=== PATIENT | male | born 1975 | race Caucasian/White ===

== ENCOUNTER 2017-01-03 10:07 | Emergency (ER) | payer OTHER ==
--- NOTE | 2017-01-03 10:41 | ED CLINICAL REPORT ---
Clinical Report - Physicians/Mid Levels Formerly [facility] [address] [place] [address] 01/03/2017 10:09 Patient: DARIEN THAPA Arrived- By private vehicle. Historian- patient. HISTORY OF PRESENT ILLNESS Chief Complaint: COUGH. This started past 2 - 3 days and is still present (staying the same). It was abrupt in onset and has been constant but is not gone now. The illness is described as moderate. The patient has had a cough, nasal congestion and a subjective low grade fever. He has had moderate amounts of green sputum. (reports "chest congestion" only when coughing.). ( reports malaise about 5 days ago). Similar symptoms previously: None. Recent medical care: Not recently seen/assessed. REVIEW OF SYSTEMS No nausea, vomiting or skin rash. All systems otherwise negative, except as recorded above. PAST HISTORY See nurses notes. Medications: Tylenol Oral, as needed. Mucinex Oral, as needed. Allergies: No Known Drug Allergy. SOCIAL HISTORY Never smoker. Occasional alcohol use. No drug use. Is a local resident. ADDITIONAL NOTES The nursing notes have been reviewed. PHYSICAL EXAM Vital Signs: 01/03/2017 10:20 BP: 140/88. HR: 86. RR: 16. O2 saturation: 97%. Temp: 99.4 F. Pain level now: 1/10. Blood pressure normal. Oxygen saturation normal. Appearance: Alert. No acute distress. Eyes: Pupils equal, round and reactive to light. Eyes normal inspection. ENT: Ears normal. Nose normal. Pharynx normal. Uvula midline. Neck: Normal inspection. Neck supple. No meningeal signs. CVS: Normal heart rate and rhythm. Heart sounds normal. Pulses normal. Respiratory: No respiratory distress. Breath sounds normal. No rales, rhonchi, wheezes or stridor. Abdomen: Soft and nontender. No organomegaly. Skin: Skin warm and dry. Normal skin color. No rash. Normal skin turgor. Extremities: Extremities exhibit normal ROM. No clubbing present or lower extremity edema. No calf tenderness. (normal gait). PROGRESS AND PROCEDURES Course of Care: The patient is a pleasant 41-year-old male with no pertinent past medical history of bleeding for evaluation of symptoms that are appear to be upper respiratory tract in nature. Lung examination is clear. Patient is afebrile here in the emergency department. Blood pressures normal. Heart rate is unremarkable. Do not feel patient needs imaging of the chest in regards to her symptoms. Chest pain is noted to be pleuritic and only occurs when he is coughing. Because patient's lung examination is clear and the patient does not have indications for antibiotics, had discussion with patient in regards to treatment with antibiotics. Do not feel these are warranted at this time. Patient appears nontoxic. Patient is in no acute distress. At this time conservative management with symptomatically controlled with medications will be recommended. Do not feel patient has pneumonia. Do not the patient is admitted to the hospital. Do not feel further emergency department workup/evaluation is warranted. Discussed the patient workup, diagnosis, home care, follow-up, return precautions. All questions answered. The patient expressed understanding of these instructions and was agreeable to them. Disposition: Discharged. Condition: good. CLINICAL IMPRESSION Acute viral bronchitis. INSTRUCTIONS Warnings: GENERAL WARNINGS: Return or contact your physician immediately if your condition worsens or changes unexpectedly, if not improving as expected, or if other problems arise. Specifically return if pain, vomiting, bleeding, breathing difficulty or fever. Your Current Medications: CONTINUE TAKING THE FOLLOWING MEDICATIONS: Mucinex Oral : prn. Tylenol Oral : prn. Prescription Medications: Phenergan w/ Codeine 10mg / 6.25mg per 5 mL: take 1-2 teaspoons every 6 hours as needed for pain or cough. Dispense sixty (60) mL. No refill. Substitution is permissible. Follow-up: Return to the emergency department as needed. Follow up with your doctor in three days. Reason for referral: reheck today's concerns. Summary of care provided to patient via paper. Screening today revealed the patient's blood pressure to be in the normal range. The patient should follow up with a primary care provider for blood pressure management. Understanding of the discharge instructions verbalized by patient. (Electronically signed by Jared Thakkar Dr. 01/03/2017 15:30)
--- NOTE | 2017-01-03 10:41 | ED NURSING NOTES ---
Clinical Report - Nurses [facility] [address] [place] [address] 01/03/2017 10:09 Patient: DARIEN THAPA TRIAGE Triage time 10:20 Jan 03 2017. Acuity: LEVEL 3. Chief Complaint: COUGH and BODY ACHES and possible FLU EXPOSURE. Alert. DERIAN COMA SCORE: [place] Coma Scale: 15- eyes open spontaneously (4); best verbal response- oriented x 4 (5); best motor response- obeys commands (6). --10:29 Sherman Prater R.N. 10:20 01/03/17. BP: 140/88. HR: 86. RR: 16. O2 saturation: 97% on room air. Temp: 99.4 F (oral). Pain level now: 12/01. Additional comments: Chest Tightness. --10:29 Sherman Prater R.N. Weight: 113.3 kg. Height/Length: 73 inches. BMI: 33. --10:21 Sherman Prater R.N. Medications Mucinex Oral, as needed. --10:25 Sherman Prater R.N. Tylenol Oral, as needed. --10:25 Sherman Prater R.N. Allergies No Known Drug Allergy. --10:26 Sherman Prater R.N. History Arrived by private vehicle. Historian: patient. Accompanied by family. Primary physician (Radha Rich). ( Cough with a productive cough (especially at night time) and chills.). Onset. (about 4 - 5 days ago). 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 (Last dose ~ 4 hours ago). PAST MEDICAL HX: Pneumonia. SOCIAL HX: Former smoker, end date 2006. No alcohol use or drug use. No recent travel. No infectious disease exposure. ABUSE ASSESSMENT: No report of abuse. FALL RISK ASSESSMENT: Fall risk assessment completed. No fall risk identified. NUTRITIONAL RISK ASSESSMENT: The nutritional risk assessment revealed no deficiencies. FUNCTIONAL ASSESSMENT: Functional assessment: no impairments noted. LEARNING NEEDS ASSESSMENT: The learning needs assessment revealed no barriers. SKIN INTEGRITY ASSESSMENT: Skin integrity risk assessment completed. No skin integrity risk identified. --10:29 Sherman Prater R.N. The patient has had chills, fatigue and vomiting. --10:30 Sherman Prater R.N. ADDITIONAL SURGERIES: Septo. --10:28 Sherman Prater R.N. Interventions ID band on patient. To treatment room. --10:29 Sherman Prater R.N. PHYSICAL ASSESSMENT Ambulatory to room. GENERAL / NEURO / PSYCH: Alert. Oriented X 4. HEENT: Mucous membranes are pink. RESPIRATORY: Respirations not labored. Breath sounds within normal limits. CVS: Pulses within normal limits. GI / : Abdomen soft and nontender. SKIN: Skin is warm and dry. Normal skin turgor. --10:31 Sherman Prater R.N. NURSING PROGRESS NOTES Patient gowned. Reassurance given to the patient. Patient identifiers checked. Call light placed in reach. Side rails up. Bed placed in lowest position. Brakes of bed on. Patient ready for evaluation- chart flagged and ED physician notified. --10:31 Sherman Prater R.N. 10:35 01/03/2017 Motrin PO Tablets 600 mg given. Allergies verified and confirmed 5 rights. --10:46 Sherman Prater R.N. DISPOSITION / DISCHARGE Departure time: 1040. --18:55 Sherman Prater R.N. 10:40. Condition at departure: improved. No learning barriers present. Discharge instructions provided and reviewed with the patient. Reviewed medication(s) (prescription given to pt). Reviewed referral to family practice for followup. Patient verbalized understanding. Written instructions provided in Divehi. The patient was discharged by the physician. He was discharged home and accompanied by certified master safecracker. He left the Emergency Department ambulatory and via private vehicle. Bdc Manager driving. --18:59 Sherman Prater R.N. Locked/Released at 01/03/2017 18:59 by Sherman Prater R.N.
--- NOTE | 2017-01-03 10:41 | ED ORDER SUMMARY ---
..... Patient: DARIEN THAPA OrderSheet [facility] VisitID: [id number] [address] [place] [address] 41y, M Registration Date/Time: 01/03/2017 ORDER SHEET Weight: 113.3 kg Allergies: No Known Drug Allergy GENERAL ORDERS: MEDICATION ORDERS: Motrin PO 600 mg (NOW) (10:36 01/03/2017 Ishmael Santamaria) (10:46 López Pearl) IV FLUIDS: ORDER SHEET NOTES: [Electronically signed by Jared Thakkar Dr. (15:30 01/03/2017)] [Electronically signed by Sherman Prater R.N. (18:59 01/03/2017)] [Electronically locked/signed by Sherman Prater R.N. (18:59 01/03/2017)]
--- NOTE | 2017-01-03 10:41 | ED NURSING NOTES ---
Clinical Report - Nurses [facility] [address] [place] [address] 01/03/2017 10:09 Patient: DARIEN THAPA TRIAGE Triage time 10:20 Jan 03 2017. Acuity: LEVEL 3. Chief Complaint: COUGH and BODY ACHES and possible FLU EXPOSURE. Alert. DERIAN COMA SCORE: [place] Coma Scale: 15- eyes open spontaneously (4); best verbal response- oriented x 4 (5); best motor response- obeys commands (6). --10:29 Sherman Prater R.N. 10:20 01/03/17. BP: 140/88. HR: 86. RR: 16. O2 saturation: 97% on room air. Temp: 99.4 F (oral). Pain level now: 12/01. Additional comments: Chest Tightness. --10:29 Sherman Prater R.N. Weight: 113.3 kg. Height/Length: 73 inches. BMI: 33. --10:21 Sherman Prater R.N. Medications Mucinex Oral, as needed. --10:25 Sherman Prater R.N. Tylenol Oral, as needed. --10:25 Sherman Prater R.N. Allergies No Known Drug Allergy. --10:26 Sherman Prater R.N. History Arrived by private vehicle. Historian: patient. Accompanied by family. Primary physician (Radha Rich). ( Cough with a productive cough (especially at night time) and chills.). Onset. (about 4 - 5 days ago). 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 (Last dose ~ 4 hours ago). PAST MEDICAL HX: Pneumonia. SOCIAL HX: Former smoker, end date 2006. No alcohol use or drug use. No recent travel. No infectious disease exposure. ABUSE ASSESSMENT: No report of abuse. FALL RISK ASSESSMENT: Fall risk assessment completed. No fall risk identified. NUTRITIONAL RISK ASSESSMENT: The nutritional risk assessment revealed no deficiencies. FUNCTIONAL ASSESSMENT: Functional assessment: no impairments noted. LEARNING NEEDS ASSESSMENT: The learning needs assessment revealed no barriers. SKIN INTEGRITY ASSESSMENT: Skin integrity risk assessment completed. No skin integrity risk identified. --10:29 Sherman Prater R.N. The patient has had chills, fatigue and vomiting. --10:30 Sherman Prater R.N. ADDITIONAL SURGERIES: Septo. --10:28 Sherman Prater R.N. Interventions ID band on patient. To treatment room. --10:29 Sherman Prater R.N. PHYSICAL ASSESSMENT Ambulatory to room. GENERAL / NEURO / PSYCH: Alert. Oriented X 4. HEENT: Mucous membranes are pink. RESPIRATORY: Respirations not labored. Breath sounds within normal limits. CVS: Pulses within normal limits. GI / : Abdomen soft and nontender. SKIN: Skin is warm and dry. Normal skin turgor. --10:31 Sherman Prater R.N. NURSING PROGRESS NOTES Patient gowned. Reassurance given to the patient. Patient identifiers checked. Call light placed in reach. Side rails up. Bed placed in lowest position. Brakes of bed on. Patient ready for evaluation- chart flagged and ED physician notified. --10:31 Sherman Prater R.N. 10:35 01/03/2017 Motrin PO Tablets 600 mg given. Allergies verified and confirmed 5 rights. --10:46 Sherman Prater R.N. DISPOSITION / DISCHARGE Departure time: 1040. --18:55 Sherman Prater R.N. 10:40. Condition at departure: improved. No learning barriers present. Discharge instructions provided and reviewed with the patient. Reviewed medication(s) (prescription given to pt). Reviewed referral to family practice for followup. Patient verbalized understanding. Written instructions provided in French. The patient was discharged by the physician. He was discharged home and accompanied by rn transport. He left the Emergency Department ambulatory and via private vehicle. Work Counselor driving. --18:59 Sherman Prater R.N. Locked/Released at 01/03/2017 18:59 by Sherman Prater R.N.
--- NOTE | 2017-01-03 10:41 | ED ORDER SUMMARY ---
..... Patient: DARIEN THAPA OrderSheet [facility] VisitID: [id number] [address] [place] [address] 41y, M Registration Date/Time: 01/03/2017 ORDER SHEET Weight: 113.3 kg Allergies: No Known Drug Allergy GENERAL ORDERS: MEDICATION ORDERS: Motrin PO 600 mg (NOW) (10:36 01/03/2017 Ishmael Santamaria) (10:46 López Pearl) IV FLUIDS: ORDER SHEET NOTES: [Electronically signed by Jared Thakkar Dr. (15:30 01/03/2017)] [Electronically signed by Sherman Prater R.N. (18:59 01/03/2017)] [Electronically locked/signed by Sherman Prater R.N. (18:59 01/03/2017)]
--- NOTE | 2017-01-03 19:00 | ED MAR SUMMARY ---
..... Medication Administration Record Located Within [facility] [address] [place] [address] Patient: DARIEN THAPA Visit ID: [id number] 41y, M Weight: 113.3 kg Height/Length: 73 in BMI: 33 ALLERGIES: No Known Drug Allergy Given 10:35 01/03/2017 Sherman Prater R.N. Medication Administered: MOTRIN [PO], Dose: 600 mg Tablets PO. Medication Ordered: Motrin PO 600 mg (NOW).
--- NOTE | 2017-01-03 19:00 | ED MED RECONCILIATION SUMMARY ---
Patient: DARIEN THAPA Medication Reconciliation Report [facility] VisitID: [id number] [address] [place] [address] 41y, M Registration Date/Time: 01/03/2017 Weight: 113.3 kg Height/Length: 73 in. BMI: 33.0 ALLERGIES: No Known Drug Allergy The patient's Home Medications are listed below: CONTINUE TAKING THE FOLLOWING MEDICATIONS: Mucinex Oral Tylenol Oral The source(s) of the original Home Medication information: Not obtained. The following Medications were given to the patient in the Emergency Department: Motrin [PO] PO 600 mg, administered: 01/03/2017 10:35:00 AM The following Medications were prescribed to the patient: Phenergan w/ Codeine 10mg / 6.25mg per 5 mL: take 1-2 teaspoons every 6 hours as needed for pain or cough. Dispense sixty (60) mL. No refill. Substitution is permissible. -- Jared Thakkar Dr.
--- NOTE | 2017-01-03 19:00 | ED MAR SUMMARY ---
..... Medication Administration Record [facility] [address] [place] [address] Patient: DARIEN THAPA Visit ID: [id number] 41y, M Weight: 113.3 kg Height/Length: 73 in BMI: 33 ALLERGIES: No Known Drug Allergy Given 10:35 01/03/2017 Sherman Prater R.N. Medication Administered: MOTRIN [PO], Dose: 600 mg Tablets PO. Medication Ordered: Motrin PO 600 mg (NOW).
--- NOTE | 2017-01-03 19:00 | ED MED RECONCILIATION SUMMARY ---
Patient: DARIEN THAPA Medication Reconciliation Report [facility] VisitID: [id number] [address] [place] [address] 41y, M Registration Date/Time: 01/03/2017 Weight: 113.3 kg Height/Length: 73 in. BMI: 33.0 ALLERGIES: No Known Drug Allergy The patient's Home Medications are listed below: CONTINUE TAKING THE FOLLOWING MEDICATIONS: Mucinex Oral Tylenol Oral The source(s) of the original Home Medication information: Not obtained. The following Medications were given to the patient in the Emergency Department: Motrin [PO] PO 600 mg, administered: 01/03/2017 10:35:00 AM The following Medications were prescribed to the patient: Phenergan w/ Codeine 10mg / 6.25mg per 5 mL: take 1-2 teaspoons every 6 hours as needed for pain or cough. Dispense sixty (60) mL. No refill. Substitution is permissible. -- Jared Thakkar Dr.
--- NOTE | 2017-01-03 19:00 | ED DISCHARGE INSTRUCTIONS ---
Patient: DARIEN THAPA General Instructions [facility] VisitID: [id number] [place] [address] 41y, M Registration Date/Time: 01/03/2017 Acute viral bronchitis. INSTRUCTIONS Warnings: GENERAL WARNINGS: Return or contact your physician immediately if your condition worsens or changes unexpectedly, if not improving as expected, or if other problems arise. Specifically return if pain, vomiting, bleeding, breathing difficulty or fever. Your Current Medications: CONTINUE TAKING THE FOLLOWING MEDICATIONS: Mucinex Oral : prn. Tylenol Oral : prn. Prescription Medications: Phenergan w/ Codeine 10mg / 6.25mg per 5 mL: take 1-2 teaspoons every 6 hours as needed for pain or cough. Dispense sixty (60) mL. No refill. Substitution is permissible. Follow-up: Return to the emergency department as needed. Follow up with your doctor in three days. Reason for referral: reheck today's concerns. Summary of care provided to patient via paper. Screening today revealed the patient's blood pressure to be in the normal range. The patient should follow up with a primary care provider for blood pressure management. Understanding of the discharge instructions verbalized by patient. ADDITIONAL INFORMATION Bronchitis, Viral (Adult: No Abx) You have a viral bronchitis. This illness is contagious during the first few days and is spread through the air by coughing and sneezing, or by direct contact (touching the sick person and then touching your own eyes, nose, or mouth). Most viral illnesses resolve within 10-14 days with rest and simple home remedies, although they may sometimes last for several weeks. Antibiotics will not kill a virus and are generally not prescribed for this condition. Home Care: If symptoms are severe, rest at home for the first 2-3 days. When resuming activity, don't let yourself become overly tired. Do not smoke and avoid the smoke of others. You may use acetaminophen (Tylenol) or ibuprofen (Motrin, Advil) to control fever or pain, unless another pain medicine was prescribed. [NOTE: If you have chronic liver or kidney disease or ever had a stomach ulcer or GI bleeding, talk with your doctor before using these medicines.] (Aspirin should never be used in anyone under 18 years of age who is ill with a fever. It may cause severe liver damage.) Your appetite may be poor so a light diet is fine. Avoid dehydration by drinking 6-8 glasses of fluids per day (water, sport drinks such as Gatorade, juices, tea, soup, etc.). Extra fluids will help loosen secretions in the nose and lung. [id number] cold medicines will not shorten the length of the illness, but may be helpful for cough (Robitussin DM), sore throat (Chloraseptic lozenges or spray), nasal and sinus congestion (Actifed or Sudafed). [NOTE: Do not use decongestants if you have high blood pressure.] Follow Up with your doctor or as directed by our staff if you are not improving over the next week. NOTE: If you are age 65 or older, or if you have chronic asthma or COPD, we recommend a PNEUMOCOCCAL VACCINATION every five years and a yearly INFLUENZAVACCINATION (FLU-SHOT) every . Ask your doctor about this. If you had an X-ray, a radiologist will review it. You will be notified of any new findings that may affect your care.] Get Prompt Medical Attention if any of the following occur: Fever over 100.4F (38.0C) for more than three days Trouble breathing, wheezing or pain with breathing Coughing up blood or increased amounts of colored sputum Weakness, drowsiness, headache, facial pain, ear pain or a stiff neck You have been given the following additional information: Bronchitis, No Antibiotic (Adult) (Electronically signed by Jared Thakkar Dr. 01/03/2017 15:30)
== END 2017-01-03 10:40 | disposition home or self-care (01) ==
LOC: ED SRH 10:07 → EDSEX 10:10 → ED SRH 10:40
DX: J20.8 Acute bronchitis due to other specified organisms (principal)

== ENCOUNTER 2017-02-07 06:22 | Emergency (ER) | payer OTHER ==
--- NOTE | 2017-02-07 10:34 | DIAGNOSTIC IMAGING REPORT ---
PROCEDURE: XR TIBIA AND FIBULA - RIGHT INDICATION: PAIN TECHNIQUE: AP and lateral views. COMPARISON: None. FINDINGS: There is a small punctate metal density in the deep soft tissues of the right mid leg. Osseous structures are normal. IMPRESSION: 1. Small punctate metal foreign body in the soft tissues of the mid right leg (may be acute or old). 2. Otherwise negative right tibia and fibula. 3. Findings called to Dr. Jared Thakkar and subsequently called to Dr. Braulio Cruz (voice mail).
--- NOTE | 2017-02-07 10:40 | DIAGNOSTIC IMAGING REPORT ---
PROCEDURE: US VENOUS - RIGHT EXT INDICATION: SWELLING TECHNIQUE: Color Doppler duplex imaging of the deep and superficial venous system without and with compression. COMPARISON: Radiographs of the right tibia and fibula earlier today (02/07/2017). FINDINGS: Deep and superficial venous system of the right lower extremity is within normal limits. There is no evidence of deep vein thrombosis or superficial thrombophlebitis. There are moderately prominent right inguinal lymph nodes (largest 4.8 cm). IMPRESSION: 1. Negative venous ultrasound of the right lower extremity. No evidence of deep vein thrombosis or superficial thrombophlebitis. 2. Moderate right inguinal adenopathy consistent with inflammatory process (e.g., cellulitis).
--- NOTE | 2017-02-11 00:36 | ED ORDER SUMMARY ---
..... Patient: DARIEN THAPA OrderSheet [facility] VisitID: [id number] [place] [address] 41y, M Registration Date/Time: 02/07/2017 ORDER SHEET Weight: 120.2 kg (stated) Allergies: No Known Drug Allergy GENERAL ORDERS: Blood Culture (No) (N/A) Urgent (06:59 02/07/2017 Jorge Luis AGUILAR) (Ack 7:03 Devan) (7:18 LWhalen R.N.) US Venous Right Urgent (07:00 02/07/2017 Jorge Luis AGUILAR) (Ack 7:03 Devan) (9:05 Eugenia) CBC w Diff Urgent (07:00 02/07/2017 Jorge Luis AGUILAR) (Ack 7:03 Devan) (7:18 LWhalen R.N.) CMP Urgent (07:00 02/07/2017 Jorge Luis AGUILAR) (Ack 7:03 Devan) (7:18 LWhalen R.N.) Lactate, Serum Urgent (07:00 02/07/2017 Jorge Luis AGUILAR) (Ack 7:03 Devan) (7:19 LWhalen R.N.) PCT (Procalcitonin) Urgent (07:00 02/07/2017 Jorge Luis AGUILAR) (Ack 7:03 Devan) (7:19 LWhalen R.N.) Tibia/Fibula Right Urgent (07:00 02/07/2017 Jorge Luis AGUILAR) (Ack 7:04 Devan) (7:35 Eugenia) MEDICATION ORDERS: IV FLUIDS: IV NS : initial bolus none -, then 150 mL/hr for 4h (NOW); Routine (06:59 02/07/2017 Jorge Luis AGUILAR) (7:19 LWhalen R.N.) Vancomycin IV 25 mg/kg (NOW) (07:00 02/07/2017 Jorge Luis AGUILAR) (8:04 LWhalen R.N.) ORDER SHEET NOTES: [Electronically signed by Breezy Pendleton R.N. (18:32 02/07/2017)] [Electronically signed by Braulio Cruz MD (00:36 02/11/2017)] [Electronically locked/signed by Breezy Pendleton R.N. (18:32 02/07/2017)]
--- NOTE | 2017-02-11 00:36 | ED MAR SUMMARY ---
..... Medication Administration Record [facility] [address] [place] [place] [address] Patient: DARIEN THAPA Visit ID: [id number] 41y, M Weight: 120.2 kg Height/Length: 73 in BMI: 35 ALLERGIES: No Known Drug Allergy Start 07:19 02/07/2017 Breezy Pendleton R.N., Stop 10:36 02/07/2017 Breezy Pendleton R.N. Medication Administered: IV NS (SALINE), Dose: IV Fluids over 4 hour(s), Rate: 150 mL/hr, Site: #1 right AC. Medication Ordered: IV NS : initial bolus none -, then 150 mL/hr for 4h (NOW); Routine. Start 07:54 02/07/2017 Breezy Pendleton R.N., Stop 09:02/07/2017 Breezy Pendleton R.N. Medication Administered: VANCOMYCIN [IVPB], Dose: 1 gm IVPB over 1 hour(s), Rate: 200 mL/hr, Dispensed: 200 mL bag, Site: #1 right AC. Medication Ordered: Vancomycin IV 25 mg/kg (NOW). Start 09:02/07/2017 Breezy Pendleton R.N., Stop 10:36 02/07/2017 Breezy Pendleton R.N. Medication Administered: VANCOMYCIN [IVPB], Dose: 1 gm IVPB over 1 hour(s), Rate: 200 mL/hr, Dispensed: 200 mL bag, Site: #1 right AC. Medication Ordered: Vancomycin IV 25 mg/kg (NOW).
--- NOTE | 2017-02-11 00:36 | ED DISCHARGE INSTRUCTIONS ---
Patient: DARIEN THAPA General Instructions [facility] VisitID: [id number] [place] [address] 41y, M Registration Date/Time: 02/07/2017 Cellulitis of the right lower leg. Acute fever INSTRUCTIONS Elevate affected areas above chest level for two days until better. Take Tylenol (Acetaminophen) or Motrin (Ibuprofen) as needed for fever control. Take medication according to label instructions. Apply dry heat for 15-20 minutes three times a day for three days until better. Do not work for two days until better. Warnings: Further evaluation is necessary. GENERAL WARNINGS: Return or contact your physician immediately if your condition worsens or changes unexpectedly, if not improving as expected, or if other problems arise. Prescription Medications: Hydrocodone/APAP 5mg/325mg: take 1 to 2 orally every 6 hours as needed for pain. Dispense fifteen (15). No refills. Cephalexin 500mg: take 1 tab orally every 6 hours for 7 days. No refills Trimethoprim-Sulfamethoxazole DS: take 1 tablet orally every 12 hours for 7 days. Dispense fourteen (14). No refills. Follow-up: Follow up with your doctor in two days. Call for an appointment. Understanding of the discharge instructions verbalized by patient. ADDITIONAL INFORMATION Cellulitis You have an infection of the skin known as cellulitis. This usually starts with a scrape, cut, insect bite, blister or other opening in the skin which becomes infected. This is a serious condition. It must be watched closely to be sure the infection is not spreading. With antibiotic treatment, the size of the red area will gradually shrink in size until the skin returns to normal. This will take 7-10 days. The red area should never increase in size once the antibiotic medicine has been started. Occasionally, an infection will be resistant to one antibiotic and another one will have to be used. Home Care: 1) Limit the use of the affected part, since excess movement can cause the infection to spread. 2) If the infection is on your leg, walk as little as possible during the first few days of the treatment. Keep your leg elevated while sitting. This will reduce swelling. 3) Take all of the antibiotic medicine exactly as directed until it is gone. Be careful not to miss any doses, especially during the first seven days. Follow Up with your doctor or this facility as directed. Check the infected area daily for the warning signs listed below. Get Prompt Medical Attention if any of the following occur: -- Spreading area of redness -- Increasing swelling or pain -- Appearance of pus or drainage -- Fever over 100.4 F (38.0 C) oral, or over 101.4 F (38.6 C) rectal, after two days on antibiotics Febrile Illness, Uncertain Cause (Adult) You have a fever, but the cause is not certain. A fever is a natural reaction of the body to an illness such as infections due to a virus or bacteria. In most cases, the temperature itself is not harmful. It actually helps the body fight infections. A fever does not need to be treated unless you feel very uncomfortable. Sometimes a fever can be an early sign of a more serious infection. Therefore, you should watch for the signs listed below. Home Care: If signs and symptoms are severe, rest at home for the first 2-3 days. When you resume activity, don't let yourself get too tired. Stay away from cigarette smoke (yours and other peoples). You may use acetaminophen (Tylenol) or ibuprofen (Motrin, Advil) to control fever or pain, unless another medicine was prescribed. NOTE: If you have chronic liver or kidney disease or ever had a stomach ulcer or GI bleeding, talk with your doctor before using these medicines. (Aspirin should never be used in anyone under 18 years of age who is ill with a fever. It may cause severe liver damage.) Your appetite may be poor, so a light diet is fine. Avoid dehydration by drinking 6-8 glasses of fluid per day (water, sport drinks such as Gatorade, sodas without caffeine, juices, tea, soup). Extra fluid will help loosen secretions in the nose and lungs. [id number] products will not shorten the duration of the illness but may be helpful for the following symptoms: cough (Robitussin DM); sore throat (Chloraseptic lozenges or spray); nasal and sinus congestion (Actifed or Sudafed). NOTE: Do not use decongestants if you have high blood pressure. Follow Up with your doctor or as advised if you do not start to improve over the next week. Get Prompt Medical Attention if any of the following occur: Cough with lots of colored sputum (mucus) or blood in your sputum Chest pain, shortness of breath, wheezing or difficulty breathing Severe headache, face, neck, throat or ear pain Feeling drowsy or confused Abdominal pain, repeated vomiting or diarrhea Joint pain or a new rash Burning when urinating Fever of 100.4F (38C) oral or higher, not better with fever medication Feeling weak or dizzy Convulsion You have been given the following additional information: Cellulitis Febrile Illness, Uncertain Cause (Adult) Do not work for two days until better. (Electronically signed by Braulio Cruz MD 02/11/2017 0:36)
--- NOTE | 2017-02-11 00:36 | ED CLINICAL REPORT ---
Clinical Report - Physicians/Mid Levels [facility] [address] [place] [address] 02/07/2017 6:22 Patient: DARIEN THAPA Time Seen: 06:58 Feb 07 2017. Arrived- By private vehicle. Historian- patient. CPT: ER phys charges level 4 (#[id number]). HISTORY OF PRESENT ILLNESS Chief Complaint: LOWER EXTREMITY PAIN and SWELLING and ; ;(RLE rash). This started yesterday and is still present. Severity is described as being moderate. The quality is noted to be sharp, aching and "pain". Symptoms located in the area of the right leg. The patient has had redness and swelling. No difficulty walking. Patient denies an injury. Similar symptoms previously: None. Recent medical care: Not recently seen/assessed. REVIEW OF SYSTEMS No cough, chest pain, difficulty breathing, enlarged lymph nodes or neck pain. No back pain, headache, blurred vision, abdominal pain or vomiting. No diarrhea. He has had fever and skin rash. All systems otherwise negative, except as recorded above. PAST HISTORY ( Bronchitis. Pneumonia. ADDITIONAL SURGERIES: Septo.). Medications: None. Allergies: No Known Drug Allergy. SOCIAL HISTORY Never smoker. Occasional alcohol use. No drug use. ADDITIONAL NOTES The nursing notes have been reviewed. PHYSICAL EXAM Vital Signs: 02/07/2017 06:49 BP: 126/78. HR: 106. RR: 20. O2 saturation: 94%. Temp: 101.4 F. Pain level now: 4/10. Appearance: Alert. No acute distress. Eyes: Pupils equal, round and reactive to light. ENT: Pharynx normal. Neck: Normal inspection. CVS: Tachycardia. Heart sounds normal. Respiratory: No respiratory distress. Breath sounds normal. Abdomen: Soft and nontender. Back: Normal inspection. No tenderness. Skin: Skin intact. Skin warm. Skin rash. Extremities: Right leg: moderate erythema and tenderness. (cellulitis). Extremities otherwise negative. Neuro: Oriented X 3. No motor deficit. No sensory deficit. LABS, X-RAYS, AND EKG Rt Tib/Fib X-ray: No bony lesion or air in the soft tissue. Soft tissues normal. Views: AP and lateral. Technique: good. The X-rays were independently viewed by me and interpreted contemporaneously by me. Lower Extremity Sonography: Negative study. Laboratory Tests: CBC w Diff: (ABIMAEL: 02/07/2017 07:10) ( [facility] 02/07/2017 07:27) Final results Test Result Flag Units (Reference) WHITE BLOOD COUNT 13.0 H K/uL (4.5-11.5) RED BLOOD COUNT 4.90 M/uL (4.50-5.90) HEMOGLOBIN 14.4 gm/dL (13.5-17.5) HEMATOCRIT 42.6 % (41.0-53.0) MEAN CELL VOLUME 87 fL (80-100) MEAN CORPUSCULAR HGB 29 pg (26-34) MEAN CORPUSCULAR HGB CONC 34 g/dL (31-37) RED CELL DISTRIBUTION WIDTH 12.9 % (11.6-14.8) PLATELET COUNT 270 K/uL (150-400) NEUTROPHIL % 72.8 % (50-75) LYMPH % 16.1 L % (25-40) MONO % 10.8 % (3-14) EOSINOPHIL % 0.1 % (0-4) BASOPHIL % 0.2 % (0-2) Lactate, Serum: (ABIMAEL: 02/07/2017 07:10) ( [facility] 02/07/2017 07:55) Final results Test Result Flag Units (Reference) LACTIC ACID 1.3 mmol/L (0.4-2.0) [id number]: (ABIMAEL: 02/07/2017 07:10) ( [facility] 02/07/2017 07:59) Final results Test Result Flag Units (Reference) PROCALCITONIN <0.5 ng/mL (0-0.5) PCT Concentration: Interpretation : Risk/option for action PCT <=0.5 ng/mL : Systemic : Low risk forinfection(sepsis): progression to severeis not likely. : systemic infection.Local bacterial : CAUTION-PCT levelsinfection is : below 0.5 ng/mL do notpossible. : exclude an infection,because localizedinfections (withoutsystemic signs) may beassociated with suchlow levels. If PCT ismeasured very earlyafter a bacterialchallenge (usually <6hours), these valuesmay still be low. Inthis case PCT shouldbe re-assessed 6-24hours later. PCT >0.5 and : Systemic infection: Moderate risk for<= 2 ng/mL : (sepsis) is : progression to severepossible, but : systemic infection.other conditions : The patient should beare known to : closely monitoredelevate PCT. : both clinically andby re-assessing PCTwithin 6-24 hours. PCT > 2 ng/mL : Systemic infection: High risk for(sepsis) is likely: progression to severeunless other : systemic infection.causes are known. : PCT >= 10 ng/mL : Important systemic: High likelihood ofinflammatory : severe sepsis orresponse, almost : septic shock.exclusively due to:severe bacterial :sepsis or septic :shock. : CMP: (ABIMAEL: 02/07/2017 07:10) ( MsgRcvd 02/07/2017 08:02) Final results Test Result Flag Units (Reference) GLUCOSE 123 H mg/dL (70-110) BUN 11 mg/dL (7-18) CREATININE 1.3 mg/dL (0.6-1.3) Estimated GFR >60 mL/min Estimated GFR- >60 mL/min Note: Persistent reduction over 3 months in eGFR<60 mL/min/1.73 m2 defines CKD. Patients with eGFR values>=60 mL/min/1.73 m2 may also have CKD if evidence ofpersistent proteinuria. Additional information may be foundat www.kidney.org. SODIUM 139 mmol/L (136-145) POTASSIUM 4.0 mmol/L (3.5-5.1) CHLORIDE 102 mmol/L (98-107) CARBON DIOXIDE 26 mmol/L (21-32) CALCIUM 8.7 mg/dL (8.5-10.1) TOTAL PROTEIN 8.2 g/dL (6.4-8.2) ALBUMIN 3.9 g/dL (3.3-5.0) BILIRUBIN, TOTAL 0.5 mg/dL (0.0-1.0) ALKALINE PHOSPHATASE 73 U/L (46-116) AST (SGOT) 47 H U/L (15-37) ALT (SGPT) 120 H U/L (12-78) . PROGRESS AND PROCEDURES Course of Care: IV NS BC times 1 Vancomycin 25mg /kg IV Patient is stable. Patient/family counseled. Disposition: Discharged. Condition: stable. CLINICAL IMPRESSION Cellulitis of the right lower leg. Acute fever INSTRUCTIONS Elevate affected areas above chest level for two days until better. Take Tylenol (Acetaminophen) or Motrin (Ibuprofen) as needed for fever control. Take medication according to label instructions. Apply dry heat for 15-20 minutes three times a day for three days until better. Do not work for two days until better. Warnings: Further evaluation is necessary. GENERAL WARNINGS: Return or contact your physician immediately if your condition worsens or changes unexpectedly, if not improving as expected, or if other problems arise. Prescription Medications: Hydrocodone/APAP 5mg/325mg: take 1 to 2 orally every 6 hours as needed for pain. Dispense fifteen (15). No refills. Cephalexin 500mg: take 1 tab orally every 6 hours for 7 days. No refills Trimethoprim-Sulfamethoxazole DS: take 1 tablet orally every 12 hours for 7 days. Dispense fourteen (14). No refills. Follow-up: Follow up with your doctor in two days. Call for an appointment. Understanding of the discharge instructions verbalized by patient. (Electronically signed by Braulio Cruz MD 02/11/2017 0:36)
--- NOTE | 2017-02-11 00:36 | ED MAR SUMMARY ---
..... Medication Administration Record [facility] [address] [place] [address] Patient: DARIEN THAPA Visit ID: [id number] 41y, M Weight: 120.2 kg Height/Length: 73 in BMI: 35 ALLERGIES: No Known Drug Allergy Start 07:19 02/07/2017 Breezy Pendleton R.N., Stop 10:36 02/07/2017 Breezy Pendleton R.N. Medication Administered: IV NS (SALINE), Dose: IV Fluids over 4 hour(s), Rate: 150 mL/hr, Site: #1 right AC. Medication Ordered: IV NS : initial bolus none -, then 150 mL/hr for 4h (NOW); Routine. Start 07:54 02/07/2017 Breezy Pendleton R.N., Stop 09:02/07/2017 Breezy Pendleton R.N. Medication Administered: VANCOMYCIN [IVPB], Dose: 1 gm IVPB over 1 hour(s), Rate: 200 mL/hr, Dispensed: 200 mL bag, Site: #1 right AC. Medication Ordered: Vancomycin IV 25 mg/kg (NOW). Start 09:02/07/2017 Breezy Pendleton R.N., Stop 10:36 02/07/2017 Breezy Pendleton R.N. Medication Administered: VANCOMYCIN [IVPB], Dose: 1 gm IVPB over 1 hour(s), Rate: 200 mL/hr, Dispensed: 200 mL bag, Site: #1 right AC. Medication Ordered: Vancomycin IV 25 mg/kg (NOW).
--- NOTE | 2017-02-11 00:36 | ED MED RECONCILIATION SUMMARY ---
Patient: DARIEN THAPA Medication Reconciliation Report [facility] VisitID: [id number] [address] [place] [address] 41y, M Registration Date/Time: 02/07/2017 Weight: 120.2 kg Height/Length: 73 in. BMI: 35.0 ALLERGIES: No Known Drug Allergy The patient's Home Medications are listed below: NONE. The source(s) of the original Home Medication information: Not obtained. The following Medications were given to the patient in the Emergency Department: IV NS IV Fluids bolus 0, then 150 mL/hr, administered: 02/07/2017 7:19:00 AM Vancomycin [IVPB] IVPB bolus 0, then 1 gm 200 mL/hr, administered: 02/07/2017 7:54:00 AM Vancomycin [IVPB] IVPB bolus 0, then 1 gm 200 mL/hr, administered: 02/07/2017 9:26:00 AM The following Medications were prescribed to the patient: Hydrocodone/APAP 5mg/325mg: take 1 to 2 orally every 6 hours as needed for pain. Dispense fifteen (15). No refills. -- Braulio Cruz MD Cephalexin 500mg: take 1 tab orally every 6 hours for 7 days. No refills -- Braulio Cruz MD Trimethoprim-Sulfamethoxazole DS: take 1 tablet orally every 12 hours for 7 days. Dispense fourteen (14). No refills. -- Braulio Cruz MD
--- NOTE | 2017-02-11 00:36 | ED ORDER SUMMARY ---
..... Patient: DARIEN THAPA OrderSheet [facility] VisitID: [id number] [place] [address] 41y, M Registration Date/Time: 02/07/2017 ORDER SHEET Weight: 120.2 kg (stated) Allergies: No Known Drug Allergy GENERAL ORDERS: Blood Culture (No) (N/A) Urgent (06:59 02/07/2017 Jorge Luis AGUILAR) (Ack 7:03 Devan) (7:18 LWhalen R.N.) US Venous Right Urgent (07:00 02/07/2017 Jorge Luis AGUILAR) (Ack 7:03 Devan) (9:05 Eugenia) CBC w Diff Urgent (07:00 02/07/2017 Jorge Luis AGUILAR) (Ack 7:03 Devan) (7:18 LWhalen R.N.) CMP Urgent (07:00 02/07/2017 Jorge Luis AGUILAR) (Ack 7:03 Devan) (7:18 LWhalen R.N.) Lactate, Serum Urgent (07:00 02/07/2017 Jorge Luis AGUILAR) (Ack 7:03 Devan) (7:19 LWhalen R.N.) PCT (Procalcitonin) Urgent (07:00 02/07/2017 Jorge Luis AGUILAR) (Ack 7:03 Devan) (7:19 LWhalen R.N.) Tibia/Fibula Right Urgent (07:00 02/07/2017 Jorge Luis AGUILAR) (Ack 7:04 Devan) (7:35 Eugenia) MEDICATION ORDERS: IV FLUIDS: IV NS : initial bolus none -, then 150 mL/hr for 4h (NOW); Routine (06:59 02/07/2017 Jorge Luis AGUILAR) (7:19 LWhalen R.N.) Vancomycin IV 25 mg/kg (NOW) (07:00 02/07/2017 Jorge Luis AGUILAR) (8:04 LWhalen R.N.) ORDER SHEET NOTES: [Electronically signed by Breezy Pendleton R.N. (18:32 02/07/2017)] [Electronically signed by Braulio Cruz MD (00:36 02/11/2017)] [Electronically locked/signed by Breezy Pendleton R.N. (18:32 02/07/2017)]
--- NOTE | 2017-02-11 00:36 | ED NURSING NOTES ---
Clinical Report - Nurses [facility] [address] [place] [address] 02/07/2017 6:22 Patient: DARIEN THAPA TRIAGE Triage time 06:49. Acuity: LEVEL 3. Chief Complaint: (right leg redness/pain). Alert. DERIAN COMA SCORE: [facility] Coma Scale: 15- eyes open spontaneously (4); best verbal response- oriented x 4 (5); best motor response- obeys commands (6). --06:53 Skyler May R.N. 06:49 02/07/17. BP: 126/78. HR: 106. RR: 20 (unlabored). O2 saturation: 94% on room air. Temp: 101.4 F (oral). Pain level now: 03/01. --06:53 Skyler May R.N. Weight: 120.2 kg stated. Height/Length: 73 inches Per Patient. BMI: 35. --06:49 Skyler May R.N. Medications None. --06:50 Skyler May R.N. Allergies No Known Drug Allergy. --06:49 Skyler May R.N. History Arrived by private vehicle. Historian: patient. Unaccompanied. This started yesterday. He has had fever and weakness. SOCIAL HX: Never smoker. Alcohol use; consumes beer occasionally. No drug use. FALL RISK ASSESSMENT: Fall risk assessment completed. No fall risk identified. NUTRITIONAL RISK ASSESSMENT: The nutritional risk assessment revealed no deficiencies. FUNCTIONAL ASSESSMENT: Functional assessment: no impairments noted. LEARNING NEEDS ASSESSMENT: The learning needs assessment revealed no barriers. --06:53 Skyler May R.N. PROBLEMS: Bronchitis. Pneumonia. --06:49 Skyler May R.N. ADDITIONAL SURGERIES: Septo. --06:49 Skyler May R.N. Interventions ID band on patient. To room. --06:53 Skyler May R.N. PHYSICAL ASSESSMENT ( patient has reddened area on right lower leg and complains of right groin pain). --06:53 Skyler May R.N. NURSING PROGRESS NOTES Patient gowned. Head of bed elevated. Two patient identifiers checked. Call light placed in reach. Side rails up x 1. Bed placed in lowest position. Brakes of bed on. Patient ready for evaluation- chart flagged. Patient waiting for evaluation. --06:53 Skyler May R.N. 07:19 02/07/2017 Site #1 started via IV in the right antecubital space with an 20g angiocath, with aseptic technique and good blood return; one attempt. Blood drawn: rainbow set and cultures x1. Labeled in the presence of the patient and sent to the lab. Saline lock flushed with 10 mL saline. --07:19 Breezy Pendleton R.N. 07:19 02/07/2017 Started IV Fluids IV NS (Saline); at 150 mL/hr over 4 hour(s) via site #1 via IV pump. Allergies verified and confirmed 5 rights. IV patency established. IV site checked: no pain, redness, or swelling. IV flushed thoroughly pre- and post-medication administration. --07:19 Breezy Pendleton R.N. 07:10. ( Report given to Breezy RN at 0710). --07:22 Skyler May R.N. 07:54 02/07/2017 Started 1 gm of Vancomycin IVPB in bag #1 200 mL; at 200 mL/hr over 1 hour(s) via site #1 via IV pump. Allergies verified and confirmed 5 rights. IV patency established. IV site checked: no pain, redness, or swelling. IV flushed thoroughly pre- and post-medication administration. --08:04 Breezy Pendleton R.N. 09:26 02/07/2017 Started 1 gm of Vancomycin IVPB in bag #1 200 mL; at 200 mL/hr over 1 hour(s) via site #1 via IV pump. Allergies verified and confirmed 5 rights. IV patency established. IV site checked: no pain, redness, or swelling. IV flushed thoroughly pre- and post-medication administration. --09:41 Breezy Pendleton R.N. 09:02/07/2017 Vancomycin IVPB Discontinued: bag #1 infused. Total amount infused: 200 mL. IV patency established. IV site checked: no pain, redness, or swelling. IV flushed thoroughly. --09:41 Breezy Pendleton R.N. 09:00 02/07/17. BP: 136/63. HR: 78. RR: 18. O2 saturation: 98% on room air. 08:30 02/07/17. BP: 120/71. HR: 86. RR: 20. O2 saturation: 98%. 08:00 02/07/17. BP: 116/69. HR: 90. RR: 20. O2 saturation: 94%. 07:30 02/07/17. BP: 110/73. HR: 92. RR: 20. O2 saturation: 94% on room air. 07:00 02/07/17. BP: 128/77. HR: 101. RR: 20. O2 saturation: 94% on room air. --09:45 Breezy Pendleton R.N. ( Patient has no complaints received orders to DC patient after antibiotics.). --09:46 Breezy Pendleton R.N. 10:36 02/07/2017 IV Fluids IV NS Discontinued: bag #1 infused upon discharge. Total amount infused: 1000 mL. IV patency established. IV site checked: no pain, redness, or swelling. IV flushed thoroughly. --10:36 Breezy Pendleton R.N. 10:36 02/07/2017 Vancomycin IVPB Discontinued: bag #2 upon discharge. Total amount infused: 200 mL. IV patency established. IV site checked: no pain, redness, or swelling. IV flushed thoroughly. --10:36 Breezy Pendleton R.N. DISPOSITION / DISCHARGE 10:36 02/07/2017 Site #1 removed upon discharge. Catheter intact. Pressure dressing applied. --10:36 Breezy Pendleton R.N. Condition at departure: improved. No learning barriers present. Discharge instructions provided and reviewed with the patient. Reviewed warnings. Reviewed medication(s). Treatments reviewed. Reviewed referrals. Patient verbalized understanding. Written instructions provided in [employer]. The patient was discharged home and accompanied by family. He left the Emergency Department ambulatory and via private vehicle. Family member driving. --10:36 Breezy Pendleton R.N. 10:35 02/07/17. BP: 120/64. HR: 81. RR: 18. O2 saturation: 98%. Temp: 99.0 F. Pain level now 01/01. --10:36 Breezy Pendleton R.N. Departure time: 10:36 Feb 07 2017. --10:36 Breezy Pendleton R.N. Locked/Released at 02/07/2017 18:32 by Breezy Pendleton R.N.
--- NOTE | 2017-02-11 00:36 | ED MED RECONCILIATION SUMMARY ---
Patient: DARIEN THAPA Medication Reconciliation Report [facility] VisitID: [id number] [address] [place] [address] 41y, M Registration Date/Time: 02/07/2017 Weight: 120.2 kg Height/Length: 73 in. BMI: 35.0 ALLERGIES: No Known Drug Allergy The patient's Home Medications are listed below: NONE. The source(s) of the original Home Medication information: Not obtained. The following Medications were given to the patient in the Emergency Department: IV NS IV Fluids bolus 0, then 150 mL/hr, administered: 02/07/2017 7:19:00 AM Vancomycin [IVPB] IVPB bolus 0, then 1 gm 200 mL/hr, administered: 02/07/2017 7:54:00 AM Vancomycin [IVPB] IVPB bolus 0, then 1 gm 200 mL/hr, administered: 02/07/2017 9:26:00 AM The following Medications were prescribed to the patient: Hydrocodone/APAP 5mg/325mg: take 1 to 2 orally every 6 hours as needed for pain. Dispense fifteen (15). No refills. -- Braulio Cruz MD Cephalexin 500mg: take 1 tab orally every 6 hours for 7 days. No refills -- Braulio Cruz MD Trimethoprim-Sulfamethoxazole DS: take 1 tablet orally every 12 hours for 7 days. Dispense fourteen (14). No refills. -- Braulio Cruz MD
== END 2017-02-07 06:23 | disposition home or self-care (01) ==
LOC: ED SRH 06:22
DX: L03.115 Cellulitis of right lower limb (principal); R50.9 Fever, unspecified